=== PATIENT | female | born 1985 | race Caucasian/White ===

== ENCOUNTER 2024-08-20 17:37 | Emergency (ER) | payer OTHER, SELFPAY ==
[2024-08-20 17:39] VITALS: BP 152/112
[2024-08-20 17:55] LABS: % Basophils 0.5 % (0-2); % Eosinophils 0.9 % (0-6); % Immature Granulocytes 0.4 % (0-0.5); % Lymphocytes 15.9 % (20.5-51.1); % Monocytes 5.7 % (1.7-9.3); % Neutrophils 76.6 % (42.2-75.2); Absolute Eosinophils 0.1 10^3/uL (0-0.7); Absolute Lymphocytes 1.2 10^3/uL (1.2-3.4); Absolute Monocytes 0.4 10^3/uL (0.1-0.6); Absolute Neutrophils 5.8 10^3/uL (1.4-6.5); Hematocrit 40.2 % (37.0-47.0); Hemoglobin 14.3 g/dL (12.0-16.0); Mean Corp Hgb Conc. 35.6 g/dL (33.0-37.0); Mean Corpuscular Hgb 33.4 pg (27.0-31.0); Mean Corpuscular Volume 93.9 fL (81.0-99.0); Nucleated Red Blood Cells % 0 %; Platelet Count 205 10^3/uL (130-400); Red Blood Cell Count 4.28 10^6/uL (4.20-5.40); Red Cell Dist. Width 14.7 % (11.5-14.5); White Blood Cell Count 7.6 10^3/uL (4.8-10.8)
[2024-08-20 18:08] LABS: ALT (SGPT) 37 U/L (0-35); AST (SGOT) 52 U/L (14-36); Albumin 4.8 g/dl (3.5-5.0); Alkaline Phosphatase 102 U/L (38-126); Blood Urea Nitrogen 8 mg/dl (7-17); Calcium 9.3 mg/dl (8.4-10.2); Carbon Dioxide 22 mmol/L (22-30); Chloride 100 mmol/L (98-107); Glucose 101 mg/dl (70-99); Lipase 127 U/L (23-300); Sodium 136 mmol/L (135-145); Total Bilirubin 0.8 mg/dl (0.2-1.3); eGFR > 60.00
--- NOTE | 2024-08-20 18:38 | ED.GENMED ---
History of Present Illness
General
Chief Complaint: Vomiting Blood
Source: patient and spouse
Exam Limitations: none
Time Seen by Provider: 08/20/24 18:11
Nursing documentation reviewed up to this point in time: agreed with
History of Present Illness
History of Present Illness:
39-year-old female presents emergency room complaining of multiple episodes of vomiting. The first episode was vomiting food streaked with blood. She then was vomiting water with blood. Emesis pink. She still feels nauseous.
Past History
Past History
ED Past Medical History: Other (Vertigo, )
ED Past Surgical History: Gynecological
Social History
Tobacco: Smoker
Alcohol: Daily
Drug: None
Personal:
Living: with family
Employment: Employed
Review of Systems
Review of Systems
Allergies reviewed?: Yes
All Other Systems: Not applicable
Constitutional: Reports no symptoms
EENT: Reports no symptoms
Respiratory: Reports no symptoms
Cardiac: Reports no symptoms
ABD/GI: Reports nausea and vomiting
: Reports no symptoms
Musculoskeletal: Reports no symptoms
Skin: Reports no symptoms
Neurological: Reports no symptoms
Endocrine: Reports no symptoms
Hematologic/Lymphatic: Reports no symptoms
Psychiatric: Reports no symptoms
Phy Exam
Physical Exam
Physical Exam:
Physical Exam
General: no apparent distress, not acutely ill
Neck: supple. no meningeal signs. normal posterior pharynx
Heart: s1/s2 regular rate and rhythm, no murmur. equal radial
pulses.
HEENT: Pupils equal round reactive to light, EOMI
Lungs: no acute respiratory distress. clear bilaterally
Abdomen: normal bowel sounds. not tender. no CVAT
Neuro: alert and oriented. no focal neurological deficits
Skin: no rash
Psychiatric: well kept. interactive and cooperative
Extremities: no edema. good distal pulses
Course
Orders/Labs/Results
Orders:
Orders
08/20/24 17:46
Type+Screen Urgent
Complete Blood Count/With Diff Urgent
Comprehensive Metabolic Panel Urgent
Lipase Urgent
08/20/24 18:36
IV Insert/Care/Rem.- Treatment PRN
0.9% Sodium Chloride 1000 ml [Nss] 1,000 ml IV BOLUS
08/20/24 18:40
Ondansetron Injectable [Zofran] 4 mg IV NOW STA
Abnormal Lab Results
08/20/24
17:46
MCH 33.4 H pg
(27.0-31.0)
RDW 14.7 H %
(11.5-14.5)
Neutrophils % 76.6 H %
(42.2-75.2)
Lymphocytes % 15.9 L %
(20.5-51.1)
Glucose 101 H mg/dl
(70-99)
AST 52 H U/L
(14-36)
ALT 37 H U/L
(0-35)
08/20/24 17:46
08/20/24 17:46
Vital Signs
Initial and Last Documented VS:
Initial Vital Signs
Temp Pulse Resp BP Pulse Ox
98.3 F 108 18 152/112 99
08/20/24 17:39 08/20/24 17:39 08/20/24 17:39 08/20/24 17:39 08/20/24 17:39
Last Documented Vital Signs
Temp Pulse Resp BP Pulse Ox
98.3 F 99 18 120/87 98
08/20/24 17:39 08/20/24 20:30 08/20/24 20:30 08/20/24 20:00 08/20/24 20:30
MDM/Problems Addressed
Differential Diagnosis Includes:
Upper GI bleed, June-Shetty tear
MDM/Problems Addressed:
39-year-old female with nausea and vomiting, blood-tinged, likely June-Shetty tear after taking zinc on an empty stomach. Patient feels better after IV fluids and Zofran. Stable for discharge.
*Pulse Oximetry
Patient hypoxic: no
*Critical Care Note
Total Time (30-74mins, 75-104mins- exclusive of procedures): Not Applicable
Data Reviewed
Prescriptions/Medications Considered But Not Given:
Protonix not indicated
Patient Management
Social determinants of health affecting care: Living situation
Escalation/DeEscalation of care consider admission/obs:
Admit not indicated
ED Attending Note
-
Portions of this chart may have been created with voice recognition software.� Occasional wrong word or��sound alike� substitutions may have occurred due to the inherent limitations of voice recognition software.
Discharge Plan
Departure
Patient Disposition: Home (Routine Discharge)
Date of Disposition: 08/20/24
Time of Disposition: 20:33
Patient with high blood pressure during this ER visit?: No
Condition: Good
Discharge Problem:
Vomiting
Instructions: Gastrointestinal Bleeding (DC), Nausea and Vomiting, Adult (DC)
Prescriptions:
New
ondansetron 4 mg tablet,disintegrating
4 mg PO Q8H PRN (Reason: nausea and vomiting) 4 Days Qty: 10 0RF
No Action
topiramate 25 MG tablet
25 mg PO DAILY
venlafaxine 50 MG tablet
150 mg PO DAILY
diazepam 5 MG tablet
5 mg PO DAILYPRN PRN (Reason: dizziness)
Bactrim:
1 dose PO BID
Patient Comments:
Pt is on day 2 of this aNTBX fir a right sided buttock abscess
Referrals:
Erica Chapa PA-C [Family Provider] - Call in 1-3 days for appt
Merlene Berry MD [Active] - Call in 1-3 days for appt
Interventions
Interventions:
*Risk Screen - Suicide Last Done: 08/20/24 18:43
*General Assessment Last Done: 08/20/24 17:39
*Neglect/Abuse Screening Last Done: 08/20/24 18:43
ED- Fall Risk Assessment Last Done: 08/20/24 18:43
*ED COVID-19 Vaccine History Last Done: 08/20/24 18:43
*Nursing Disposition Last Done: 08/20/24 20:52
LQ-Ehiake-Eodprhpqpa Assessment Last Done: 08/20/24 18:43
ED- Cardiac Assessment Last Done: 08/20/24 18:43
ED- Pulmonary Assessment Last Done: 08/20/24 18:43
Discharge Date and Time
Discharge Date/Time: 08/20/24 20:53
Print Language: MAORI
[2024-08-20 18:43] VITALS: BMI 28.4
[2024-08-20 18:44] VITALS: BP 124/100
[2024-08-20] MEDS: ZOFRAN 4 MG IV (18:58)
[2024-08-20] MEDS: NSS 1000 IV (18:58)
[2024-08-20 19:00] VITALS: BP 121/95
[2024-08-20 20:00] VITALS: BP 120/87
== END 2024-08-20 20:53 | disposition home or self-care (01) ==
LOC: EMR 17:37
PROVIDERS: EMERGENCY PHYSICIAN Emergency Medicine; FAMILY PHYSICIAN Physician Assistant Medical
DX: R11.2 Nausea with vomiting, unspecified (principal); F17.200 Nicotine dependence, unspecified, uncomplicated
CPT/HCPCS: 99283; 96374; 96361; 80053; 83690; 85025; 86850; 86900; 86901